=== PATIENT | female | born 1985 | race Caucasian/White ===

== ENCOUNTER 2022-10-08 10:41 | Oncology outpatient (recurring) (ONCR) | payer MEDICAID, SELFPAY ==
[2022-10-08 11:51] VITALS: BP 120/81; PULSE 83; RESP 18; TEMP 36.5; O2SAT 98
[2022-10-08 12:07] LABS: Basophils % 0.8 %; Eosinophils # 0.2 10^3/uL (0.0-0.8); Eosinophils % 4.7 %; Hematocrit 42.5 % (37.0-47.0); Lymphocytes # 1.4 10^3/uL (0.8-4.8); Lymphocytes % 37.9 %; Mean Corpuscular HGB Conc 32.9 g/dL (30.0-36.0); Mean Corpuscular Hemoglobin 28.5 pg (28.0-34.0); Mean Corpuscular Volume 86.6 fl (81-99); Mean Platelet Volume 10.1 fL (7.4-10.4); Monocytes # 0.3 10^3/uL (0.2-0.9); Monocytes % 7.1 %; Neutrophils # 1.88 10^3/uL (1.8-7.7); Neutrophils % 49.5 %; Nucleated Red Blood Cells % 0 %; Platelet Count 220 10^3/cmm (130-400); Red Blood Count 4.91 10^6/uL (4.1-5.3); Red Cell Distribution Width 12.2 % (12.1-15.1); White Blood Count 3.8 10^3/uL (4.0-10.0)
[2022-10-08 12:29] LABS: Alanine Aminotransferase 23 U/L (0-33); Albumin Level 4.4 g/dL (3.5-5.2); Alkaline Phosphatase 49 U/L (35-105); Aspartate Amino Transferase 24 U/L (0-32); Blood Urea Nitrogen 9 mg/dL (6-20); Calcium 8.9 mg/dL (8.5-10.5); Carbon Dioxide 27 mmol/L (22-29); Chloride 102 mmol/L (98-107); Globulin 2.3 g/dL (1.3-4.6); Glomerular Filtration Rate 111.9 mL/min (90-130); Glucose 89 mg/dL (65-115); Iron 81 ug/dL (37-145); Osmolality Calculated 276 mOsm/kg (285-295); Percent Saturation 25.7 % (20-50); Sodium 134 mmol/L (136-145); Total Bilirubin 0.4 mg/dL (0.15-1.2); Total Iron Binding Capacity 315 mcg/dl; Total Protein 6.7 g/dL (6.6-8.7); Unsaturated Iron Binding 234 ug/dL (112-347)
[2022-10-08 12:30] LABS: Erythrocyte Sedimentation Rate < 1 mm/hr (0-15)
[2022-10-08 12:32] LABS: LAB Peripheral Smear Sent for Review
[2022-10-08 12:35] LABS: Lactate Dehydrogenase 200 U/L (135-214)
[2022-10-08 12:43] LABS: Vitamin B12 714 pg/mL (232-1245)
[2022-10-10 14:10] LABS: Anti-Nuclear Antibody Screen NEGATIVE (NEGATIVE)
== END 2022-11-05 23:59 | disposition home or self-care (01) ==
PROVIDERS: PCP Nurse Practitioner Family; Visit Provider Internal Medicine Medical Oncology
DX: D72.819 Decreased white blood cell count, unspecified (principal); R53.83 Other fatigue
CPT/HCPCS: 36415; 80053; 82607; 83540; 83550; 83615; 85025; 85651; 86038; 86140

== ENCOUNTER → 2024-01-24 11:07 | Outpatient (BNVA) | payer OTHER, MEDICAID, SELFPAY | PROVIDERS: PCP Nurse Practitioner Family; Visit Provider Obstetrics & Gynecology | DX: Z01.419 Encounter for gynecological examination (general) (routine) without abnormal findings (principal); D72.819 Decreased white blood cell count, unspecified; N94.6 Dysmenorrhea, unspecified | CPT/HCPCS: 80053; 83001; 84443; 85025; 87624 ==

== ENCOUNTER → 2024-03-04 12:31 | Outpatient (BNVA) | payer OTHER, SELFPAY | PROVIDERS: PCP Nurse Practitioner Family; Visit Provider Obstetrics & Gynecology | DX: N93.9 Abnormal uterine and vaginal bleeding, unspecified (principal); D25.9 Leiomyoma of uterus, unspecified | CPT/HCPCS: 76830 ==

== ENCOUNTER → 2024-04-27 13:53 | Outpatient (BNVA) | payer OTHER, SELFPAY | PROVIDERS: PCP Nurse Practitioner Family; Visit Provider Obstetrics & Gynecology | DX: R30.0 Dysuria (principal) | CPT/HCPCS: 81000 ==

== ENCOUNTER 2025-01-01 11:41 | Outpatient (CLI) | payer OTHER, SELFPAY ==
--- NOTE | 2025-01-01 11:30 | US_ITS ---
WS: [id number] PELVIC ULTRASOUND REASON FOR VISIT: R10.2 - Pelvic and perineal pain TECHNIQUE: Grayscale and Doppler transabdominal and transvaginal pelvic ultrasound. FINDINGS: No free fluid or adnexal mass. Uterus measures 7.2 cm x 5.8 cm x 5.3 centimeters. The uterus is myomatous with 2 small uterine fibroids identified approximately 1.5 cm in maximum dimension. Right ovary measures 2.1 cm x 2.1 cm x 1.7 cm, and left ovary measures 1.7 cm x 1.9 cm x 3.9 cm. The ovaries demonstrate small follicular cysts and normal blood flow. Prominent pelvic veins. US/US pelv w/transvag [id number] IMPRESSION: Myomatous uterus as above.
== END 2025-01-01 11:42 | disposition home or self-care (01) ==
LOC: RAD 11:44
PROVIDERS: PCP Nurse Practitioner Family; Visit Provider Obstetrics & Gynecology
DX: R10.2 Pelvic and perineal pain (principal)
CPT/HCPCS: 76830; 76856

== ENCOUNTER 2025-01-18 11:24 | Outpatient (CLI) | payer OTHER, SELFPAY ==
--- NOTE | 2025-01-18 11:32 | MM_ITS ---
WS: [id number] BILATERAL 3D TOMOSYNTHESIS DIGITAL SCREENING MAMMOGRAPHY WITH CAD CLINICAL INFORMATION: Z12.39 - Encounter for other screening for malignant neop... HISTORY: Screening mammogram. No current complaints. COMPARISON: Baseline TECHNIQUE: Bilateral CC and MLO views. FINDINGS: Scattered fibroglandular densities bilaterally. No suspicious focal mass, asymmetry, calcifications, or architectural distortion. No evidence of malignancy. MM/MM scr tomosynthesis [id number] IMPRESSION: DENSITY: There are scattered areas of fibroglandular density. BI-RADS: 1 - Negative. FOLLOW UP: 1 Year Follow-up Recommend return to annual screening mammography.
== END 2025-01-18 11:25 | disposition home or self-care (01) ==
LOC: RAD 11:25
PROVIDERS: PCP Nurse Practitioner Family; Visit Provider Obstetrics & Gynecology
DX: Z12.31 Encounter for screening mammogram for malignant neoplasm of breast (principal); R92.323 Mammographic fibroglandular density, bilateral breasts
CPT/HCPCS: 77063; 77067